=== PATIENT | male | born 1940 | race Caucasian/White ===

== ENCOUNTER 2018-05-07 02:29 | Inpatient (IN) | payer MEDICARE, OTHER | END 2018-05-12 16:45 | disposition home or self-care (01) | LOC: ER 02:29 → ED HOLD 02:43 → SUR 3N 20:25 | DX: I26.92 Saddle embolus of pulmonary artery without acute cor pulmonale (principal); E43 Unspecified severe protein-calorie malnutrition; R91.8 Other nonspecific abnormal finding of lung field; R19.00 Intra-abdominal and pelvic swelling, mass and lump, unspecified site; D64.9 Anemia, unspecified; K86.9 Disease of pancreas, unspecified ==